=== PATIENT | female | born 2000 | race Asian ===

== ENCOUNTER → 2021-11-13 | Day surgery (SDC) | payer BC | END | disposition home or self-care (01) | LOC: BICULT 12:23 | PROC: 0H9U3ZX Drainage of Left Breast, Percutaneous Approach, Diagnostic (ICD-10-PCS; principal; 2021-11-13) | DX: D24.2 Benign neoplasm of left breast (principal); N60.82 Other benign mammary dysplasias of left breast | CPT/HCPCS: 19083; 88305 ==